=== PATIENT | male | born 1940 | race Caucasian/White ===

== ENCOUNTER → 2019-12-26 07:54 | Outpatient (CLI) | payer SELFPAY ==
--- NOTE | 2019-12-26 08:05 | CT_ITS ---
STUDY: CT ABDOMEN AND PELVIS WITH AND WITHOUT CONTRAST REASON FOR EXAM: Male, 79 years old. GROSS HEMATURIA X 3 WKS, HX-DB, SURG-PILONIDAL CYST REMOVED RADIATION DOSAGE (If Supplied By Facility): CTDIvol = ( 24.47 ) mGy, DLP = ( 3142.71 ) mGycm TECHNIQUE: Transaxial images were obtained from the dome of the diaphragm to the symphysis pubis without oral contrast. IV 100mL Isovue-300 was administered. Sagittal and coronal images were reconstructed. Individualized dose optimization techniques were used for this CT. COMPARISON: None. FINDINGS: The visualized lung bases are unremarkable. Coronary artery calcification. There is decreased attenuation of the liver consistent with steatosis. There are multiple small gallstones. Normal spleen. Normal pancreas. Normal bilateral adrenal glands. Normal right kidney. Normal left kidney. Normal visualized stomach. Normal small intestine. There are scattered colonic diverticula consistent with diverticulosis. The appendix is visualized and appears normal. There is diffuse atherosclerotic calcification of the abdominal aorta and its major visceral branches, without a demonstrated aneurysm. Normal inferior vena cava. Normal retroperitoneum. Diffuse bladder wall thickening measuring 7.6 mm although the bladder is not completely distended. There is a 1.8 cm x 1.4 cm rounded high density at the base of bladder on the right side. This may represent a calculus. A similar-appearing dense round nodule is seen at the base of the lateral on the left side measuring 1.6 cm x 1.2 cm. There is enlargement of the prostate gland. It measures 4.7 cm x 5.9 cm. Central calcifications are seen. There is a small umbilical hernia containing fat. There are mild degenerative changes of the visualized lumbar spine. CT/CT Abd/Pelvis W/WO Contrast IMPRESSION: Fatty infiltration of the liver. Multiple small gallstones. 2. Density seen at the bladder base as described. Clinical correlation is recommended. Bladder wall thickening. Electronically Signed: Rome Lobato, at 8:53 EDT , Service support ,
== END ==
PROVIDERS: PCP Family Medicine; Referring Provider Nurse Practitioner Adult Health; Visit Provider Nurse Practitioner Adult Health
DX: R31.0 Gross hematuria (principal)
CPT/HCPCS: 74178; Q9967

== ENCOUNTER 2020-01-05 06:36 | Day surgery (SDC) | payer SELFPAY ==
--- NOTE | 2020-01-04 08:40 | EKG12_ITS ---
Test Reason : PRE OP Blood Pressure : / mmHG Vent. Rate : 060 BPM Atrial Rate : 060 BPM P-R Int : 212 ms QRS Dur : 094 ms QT Int : 404 ms P-R-T Axes : 031 -16 025 degrees QTc Int : 404 ms Sinus rhythm with 1st degree A-V block with Premature atrial complexes Otherwise normal ECG Confirmed by PARISH LAGOS, HAMIDA ([id number]), editor school photograph LEYDI MULLEN ([id number]) on 01/09/2020 2:58:37 PM Referred By: Hardy Alberto Confirmed By:HAMIDA LUGO MD
[2020-01-04 09:39] LABS: Anion Gap 6 (5-15); BUN 18 mg/dL (7-18); BUN/Creat Ratio 19.8 RATIO (10-20); Calcium,Total 8.9 mg/dL (8.5-10.1); Chloride 108 mmol/L (98-107); Creatinine, Serum 0.91 mg/dL (0.70-1.30); EST Glomerular Filtration Rate 86 mL/min (>60); Est Glom Filt Rate - Afr Amer 104 mL/min (>60); Glucose 168 mg/dL (74-106); Potassium 4.2 mmol/L (3.5-5.1); Sodium Level 140 mmol/L (136-145)
[2020-01-04 10:22] LABS: Hemoglobin A1c 6.3 % (3.8-5.6)
[2020-01-05] VITALS (11 sets, daily range): BP systolic 123–189; BP diastolic 64–86; PULSE 46–73; RESP 16–18; TEMP 36.4–37.2; O2SAT 94–99; BMI 31.1
--- NOTE | 2020-01-05 | IMM_PTH ---
PATIENT: LAILA URIBE LOC: [facility] [place] U#:[id number] AGE/SX: 79/M ROOM: RE01/05/[address]: Dr. Hardy Alberto MD : 1940 BED: DIS: 01/06/2020 SPEC #: [id number] RECD: 01/09/20 12:10 STATUS: SOUJulien REQ #: [id number] YULISA: 01/05/20 00:[address]: Hardy Alberto DEPT: IMMUNOHISTOCHEMISTRY RECD BY: Mago Cassidy ENTERED: 01/09/20 12:11 SP TYPE: IMMUNO OTHR DR: Dr. Topher Diaz DO Tissues: Prostate, NOS Procedures: 34BE12 (add) P40 (add) 34BE12 (initial) PHYSICIAN & INSTITUTION [place] [id number] SPECIMEN INFORMATION: Tissue Source: Prostate tissue, TUR Clinical Info: Bladder stone and large prostate Specimen Number: [id number] #3 & 11 CPT code: 42134, 04902 x3 METHODOLOGY: Deparaffinized sections of prefer/formalin-fixed tissue or PAP/DQ stained slides are incubated with monoclonal/polyclonal antibodies/oligonucleotide probes. Localization is made via biotin free immunoperoxidase method. Appropriate controls are performed and reacted as expected. Results on target cell population are indicated in the following table: RESULTS: ANTIBODY / CLONE RESULT Block 3 P40 (BC28) negative 34BE12 (34BE12) negative Block 11 P40 (BC28) negative 34BE12 (34BE12) negative These tests were developed and their performance characteristics determined by [facility]. They may not have been cleared or approved by the U.S. Food and Drug Administration. The FDA has determined that such clearance or approval is not necessary. The above immunohistochemical/dualISH markers are ordered and reviewed by the Pathologist. INTERPRETATION: Prostate tissue, TUR: Prostatic adenocarcinoma. SJ:eric 01/10/20
[2020-01-05 07:26] LABS: Bedside Glucose 140 mg/dL (70-110)
[2020-01-05] MEDS: Lactated Ringers 1,000 ML 100 ML IV (07:34)
--- NOTE | 2020-01-05 08:07 | PCM.HP.STD ---
History of Present Illness Date of Admission: 01/05/20 Chief Complaint: Bladder stones and large prostate The patient is a 79 year old male who presented the office with gross hematuria CAT scan was done he has 2 large bladder stones and enlarged prostate with obstruction but can proceed with laser lithotripsy of the bladder stones, cystolitholapaxy and a TURP. Explained to the patient how the surgery is done with expect afterwards you have some bleeding blood in the urine healthy have to take it easy for about a week. I answered all his questions before the surgery. Past Medical History Allergies No Known Allergies Allergy (Verified 01/05/20 07:21) Home Medications: Ambulatory Orders Medication Instructions Recorded [place]-3S/Dha/Epa/Fish Oil [Fish 2 ea PO DAILY 12/29/19 Oil 1,000 mg Softgel] RX: Metformin HCl 1,000 mg PO BID 12/29/19 Warfarin Sodium [Coumadin] 6 mg PO DAILY 12/29/19 Surgical History: no surgical history Smoking Status: Former smoker Tobacco Use: Non-smoker Review of Systems Constitutional: Denies: Chills, Fever, Weight Change HEENT: Denies: Head Aches, Sinus Congestion, Sinus Drainage Cardiovascular: Denies: Chest Pain, Palpitations Respiratory: Denies: Cough, Shortness of breath at rest, Sputum production Gastrointestinal: Denies: Abdominal Pain, Nausea, Vomiting Genitourinary: Denies: Dysuria Musculoskeletal: Denies: Joint Pain, Joint Tenderness Skin: Denies: Rash, Wounds Neurological: Denies: Numbness, Tingling, Focal weakness Psychiatric: Denies: Anxiety, Depression, Homicidal Ideations, Suicidal Ideations Hematologic/ Lymphatic: Denies: Easy Bruising, Easy Bleeding VTE Information - Inpt Only VTE Present on Admission: No VTE Mechan Device Prophylaxis: SCD's - Physical Exam Vitals/I&O's: Vital Signs Temp Pulse Resp BP Pulse Ox 98.5 F 58 L 16 159/76 H 99 01/05/20 07:23 01/05/20 07:23 01/05/20 07:23 01/05/20 07:23 01/05/20 07:23 Oxygen Delivery Method Room Air Weight: 90.2 kg Body Mass Index (BMI) 31.1 General: Alert, Oriented x3, Cooperative HEENT: Atraumatic, PERRLA, EOMI, Normocephalic Neck: Supple, No JVD, Negative Carotid Bruits Lungs: Clear to auscultation, Normal air movement Cardiovascular: Regular rate, No murmurs Abdomen: Bowel Sounds Present, Soft, Non Tender Extremities: No edema, Capillary Refill Less than 3 Seconds Skin: No rashes, No breakdown Musculoskeletal: No Tenderness to Palpation of Joints or Extremities Neurological: Cranial nerves II-XII grossly intact Psych/Mental Status: Normal Affect, Appropriate Microbiology Past 72 Hours 01/04/20 09:00 Mucosa - Nasopharyngeal Coronavirus COVID-19 PCR - Final Laboratory Results 01/04/20 08:19: Sodium 140, Potassium 4.2, Chloride 108 H, Carbon Dioxide 26.0, Anion Gap 6, BUN 18, Creatinine 0.91, Est GFR (MDRD) Af Amer 104, Est GFR (MDRD) Non-Af 86, BUN/Creatinine Ratio 19.8, Glucose 168 H, Calcium 8.9 01/04/20 08:19: Hemoglobin A1c 6.3 H 01/05/20 07:19: POC Glucose 140 H Current Medications Lactated Ringer's () 1,000 mls @ 100 mls/hr IV .Q10H LEE Last Admin: 01/05/20 07:34 Dose: 100 mls/hr Documented by: Assessment/Plan 79-year-old male with BPH and obstruction 2 large bladder stones plan to laser the bladder stones and proceed with a TURP.
[2020-01-05] MEDS: Cefazolin 2 GM in 0.9% Normal Saline 100 ML IV (08:22)
--- NOTE | 2020-01-05 08:26 | PCM.DC.URO ---
Discharge Diet: No Restrictions Discharge Activity: Return to Normal Activity, May Not Drive - for 2 days. Additional Activity Instructions:: Please be aware that pain medications may cause nausea. You should typically eat light foods as you take your pain medication. Pain medication may cause constipation, if this is a problem for you, please discuss with your doctor. Instructions: Transurethral Resection of the Prostate (TURP): Home Recovery Allergies/Adverse Reactions: Allergies No Known Allergies Allergy (Verified 01/05/20 07:21) Medications to take at Discharge Metformin HCl 1,000 mg PO BID 12/29/19 [place]-3S/Dha/Epa/Fish Oil [Fish Oil 1,000 mg Softgel] 2 ea PO DAILY 12/29/19 Ciprofloxacin [Cipro] 500 mg PO BID #14 tab 01/05/20 Hydrocodone/Acetaminophen [[place] 5-325 Tablet] 1 ea PO Q4H PRN PRN 5 Days #10 tab 01/05/20 The following prescriptions were given: Ciprofloxacin [Cipro] 500 mg PO BID #14 tab Prescription Printed Hydrocodone/Acetaminophen [[place] 5-325 Tablet] 1 ea PO Q4H PRN PRN 5 Days #10 tab PRN Reason: Pain Score 1-10/10 Prescription Printed Primary Care Physician: Topher Diaz DO [Primary Care Provider] - Test Results: Test results from this visit will be discussed in further detail at your follow-up appointment, if applicable. Please Follow Up With: Hardy Alberto MD When: in 2 weeks, please call to make an appointment. Proposed Discharge Date: 01/06/20
--- NOTE | 2020-01-05 08:50 | PROS_PTH ---
PATIENT: LAILA URIBE LOC: [facility] [place] U#:[id number] AGE/SX: 79/M ROOM: RE01/05/[address]: Dr. Hardy Alberto MD : 1940 BED: DIS: 01/06/2020 SPEC #: [id number] RECD: 01/05/20 11:08 STATUS: JIM SMITH #: [id number] YULISA: 01/05/20 08:[address]: Hardy Alberto DEPT: SURGICAL PATHOLOGY RECD BY: Blair Hernandez ENTERED: 01/05/20 11:37 SP TYPE: TURP OTHR DR: Dr. Topher Diaz, DO Tissues: Prostate, NOS Procedures: Surgery Specimen Level IV HEADER OPERATION: Cystoscopy, TUR of prostate PRE-OP DIAGNOSIS: Bladder stones and large prostate TISSUE SUBMITTED: Prostate tissue MICROSCOPIC DIAGNOSIS Prostate tissue, TUR: Prostatic adenocarcinoma. Fragments of stone, gross only. Please see cancer summary in the comment. SJ:rg 01/09/20 COMMENT PROSTATE CANCER (TUR) SUMMARY: Procedure - transurethral resection of prostate (TURP) Histologic type - acinar adenocarcinoma Histologic grade (Mychal Pattern) - group 1 ([place] score 3+3=6) Tumor Quantitation (TUR specimens): Estimated percentage of prostatic tissue involved by tumor - ~20% Number of positive chips - 21 Total number of chips - ~120 Periprostatic fat invasion - not applicable Seminal vesicle invasion - not applicable Lymphvascular invasion - not identified Perineural invasion - not identified Additional pathologic findings - benign prostatic hyperplasia, glandular and stromal type. - Chronic inflammation. - Fragments of stones. Treatment effect - no known presurgical therapy. The above summary is in compliance with [employer] [place] [employer] (CAP) Cancer Protocols Checklist and [place] Joint Committee on Cancer (AJCC), Staging Manual, 8th Ed. Immunohistochemistry ([id number]) supports the above diagnosis. Case has been reviewed in consultation with Dr. Fagan who concurs with the above diagnosis. IDC:AM MICROSCOPIC DESCRIPTION Slides are reviewed. GROSS DESCRIPTION Received is one container labeled with the patient's name and designated prostate tissue. The specimen consists of multiple irregular fragments of pink-jolly, rubbery, soft tissue that in aggregate weigh 11.9 gm and measure in aggregate 8 x 8 x 0.7 cm. Also present in the specimen contains are multiple irregular chalky, yellow calculi aggregating to 5 x 3 x 0.9 cm. Almost entire soft tissue is submitted in 12 cassettes. Stones are for gross identification only / AM:eric 01/05/20 TC:0 CPT: 63169
--- NOTE | 2020-01-05 09:48 | PCM.OPRPT ---
Report of Operation Date of Procedure: 01/05/20 Pre-Operative Diagnosis: Bladder stones and BPH with obstruction Post-Operative Diagnosis: Same Surgery/Procedure Performed:: Cystoscopy and laser bladder stones, transurethral section of the prostate Description of Surgical Findings:: 79-year-old male was found to have a very large bladder stones and also obstructive prostate on CAT scan recommended we proceed with a cystolitholapaxy and laser of the bladder stones and also transurethral resection of the prostate to resect the obstructive prostate. Risk of the procedure were discussed with the patient including bleeding, infection, bladder control problems. 79-year-old male taken back to the operating room at the smooth induction of general anesthesia is placed upon the table penis and testicles are prepped and draped in usual sterile fashion went into the bladder with a 26 [place] continuous flow resectoscope once inside the bladder I put in the laser bridge and then I used the thousand micron laser fiber to laser to very large bladder stones both stones were about greater than 3 to 5 cm in size. Took a while to laser the stones with the stones were lasered out completely then I flushed all the pieces out of the bladder and I switched over to the Olympus resectoscope he had really no median lobe it is significant bilateral hydro-per trophy and I resected the left lobe of the prostate and then I resected the right lobe of the prostate very carefully resected by the verumontanum making sure not to resect past the sphincter. I pulled behind the sphincter received the sphincter coapted together and the verumontanum was in view and no resection past the verumontanum. Obtained hemostasis. I attempted a flow test but had a count of a weak flow but could not get a really strong flow but looked inside and really no more tissue to resect and I did not identify any flapping tissue. I then placed a catheter in the bladder on continuous bladder irrigation we will keep him overnight with a catheter I think for his case send him home with a catheter let things heal up and then will get the catheter out next week in the office. Type of Anesthesia:: General Drains: 3 way thomason - Admit VTE Documentation VTE Present on Admission: No
[2020-01-05 10:11] LABS: Bedside Glucose 138 mg/dL (70-110)
[2020-01-05] MEDS: 0.9% Normal Saline 1,000 ML 75 ML IV (13:11)
[2020-01-05] MEDS: Cefazolin 1 GM/50 ML BAG IV ×2 (16:09→23:44)
[2020-01-05 16:48] LABS: Prothrombin Time Fingerstick 11.9 SEC (11.9-14.4)
[2020-01-05] MEDS: metFORMIN HCl 1,000 MG Tablet 1000 MG PO (16:58)
[2020-01-05 17:05] LABS: Bedside Glucose 174 mg/dL (70-110)
[2020-01-05] MEDS: Docusate Sodium 100 MG Capsule 200 MG PO (21:43)
[2020-01-05] MEDS: Ibuprofen 600 MG Tablet PO (21:43)
[2020-01-06] MEDS: Acetaminophen 325 MG Tablet PO (01:59)
[2020-01-06 03:00] VITALS: BP 135/62; PULSE 53; RESP 16; TEMP 36.9; O2SAT 96
--- NOTE | 2020-01-06 06:42 | NURSING ---
CBI stopped 0600. Urine clear in tubing. No clots or issues overnight.
[2020-01-06 07:59] VITALS: O2SAT 94
[2020-01-06] MEDS: Docusate Sodium 100 MG Capsule 200 MG PO (08:44)
[2020-01-06] MEDS: Pantoprazole Sodium 40 MG Tablet PO (08:44)
[2020-01-06] MEDS: metFORMIN HCl 1,000 MG Tablet 1000 MG PO (08:44)
[2020-01-06 08:47] VITALS: BP 149/69; PULSE 52; RESP 18; TEMP 36.6; O2SAT 97
--- NOTE | 2020-01-06 10:01 | DS.PCM_ITS ---
Discharge Date and Diagnosis Date of Admission: 01/05/20 Date of Discharge: 01/06/20 Hospital Course and Treatment Operations: TURP Procedures: None Summary of Care Provided: The patient is a 79 year old status post TURP urine is nice and clear he will go home today after he is able to urinate. There is no blood in the urine irrigation is off. - Physical Exam Vitals/I&O's: Vital Signs Temp Pulse Resp BP Pulse Ox 97.9 F 52 L 18 149/69 H 97 01/06/20 08:47 01/06/20 08:47 01/06/20 08:47 01/06/20 08:47 01/06/20 08:47 Oxygen Delivery Method Room Air Weight: 90.2 kg Body Mass Index (BMI) 31.1 Finger Stick Blood Glucose 138 Intake and Output for Last 24 Hours 01/04/20 01/05/20 01/06/20 23:59 23:59 23:59 Intake Total 1589.58 / 1889.58 783.75 / 783.75 Output Total 2350 / 2850 700 / 700 Balance -760.42 / -960.42 83.75 / 83.75 General: Alert, Oriented x3, Cooperative HEENT: Atraumatic, PERRLA, EOMI, Normocephalic Neck: Supple, No JVD, Negative Carotid Bruits Lungs: Clear to auscultation, Normal air movement Cardiovascular: Regular rate, No murmurs Abdomen: Bowel Sounds Present, Soft, Non Tender Extremities: No edema, Capillary Refill Less than 3 Seconds Skin: No rashes, No breakdown Musculoskeletal: No Tenderness to Palpation of Joints or Extremities Neurological: Cranial nerves II-XII grossly intact Psych/Mental Status: Normal Affect, Appropriate Microbiology Past 72 Hours 01/04/20 09:00 Mucosa - Nasopharyngeal Coronavirus COVID-19 PCR - Final Laboratory Results 01/05/20 07:23: POC PT 11.9, INR 0.90 01/05/20 10:07: POC Glucose 138 H 01/05/20 16:56: POC Glucose 174 H Current Medications Acetaminophen (Tylenol) 325 mg PO Q4H PRN PRN PRN Reason: Pain Score 1-10/10 Last Admin: 01/06/20 01:59 Dose: 325 mg Documented by: Al Hydroxide/Mg Hydroxide (Mylanta Ii) 30 ml PO Q4H PRN PRN PRN Reason: Heartburn Belladonna Alkaloids/Opium (B & O) 60 mg RECTAL Q6H PRN PRN PRN Reason: Spasm Docusate Sodium (Colace) 200 mg PO BID ON LICENSE OF [facility] Last Admin: 01/06/20 08:44 Dose: 200 mg Documented by: Sodium Chloride () 1,000 mls @ 75 mls/hr IV .[id number] ON LICENSE OF [facility] Last Infusion: 01/06/20 07:42 Dose: Infused Documented by: Sodium Chloride () 250 mls @ 15 mls/hr IV .[id number] PRN PRN Reason: Saline Flush Sodium Chloride () 250 mls @ 15 mls/hr IV .[id number] PRN PRN Reason: Additional IVPB Infusion Ibuprofen (Motrin) 600 mg PO Q6H PRN PRN PRN Reason: Pain Score 1-10/10 Last Admin: 01/05/20 21:43 Dose: 600 mg Documented by: Met[facility]) [facility] Last Admin: 01/06/20 08:44 Dose: 1,000 mg Documented by: Ondansetron HCl (Zofran) 4 mg IV Q6H PRN PRN PRN Reason: Nausea Oxycodone HCl (Oxyir) 5 mg PO Q4H PRN PRN PRN Reason: Pain Score 1-10/10 Pantoprazole Sodium (Protonix) 40 mg PO DAILY ON LICENSE OF [facility] Last Admin: 01/06/20 08:44 Dose: 40 mg Documented by: Sodium Chloride () 10 - 40 ml IV UD PRN PRN Reason: SALINE FLUSH Discharge Diet: No Restrictions Discharge Activity: Return to Normal Activity, May Not Drive - for 2 days. Additional Activity Instructions:: Please be aware that pain medications may cause nausea. You should typically eat light foods as you take your pain medication. Pain medication may cause constipation, if this is a problem for you, please discuss with your doctor. Home Medications: Medications to take at Discharge Metformin HCl 1,000 mg PO BID 12/29/19 [place]-3S/Dha/Epa/Fish Oil [Fish Oil 1,000 mg Softgel] 2 ea PO DAILY 12/29/19 Ciprofloxacin [Cipro] 500 mg PO BID #14 tab 01/05/20 Hydrocodone/Acetaminophen [[place] 5-325 Tablet] 1 ea PO Q4H PRN PRN 5 Days #10 tab 01/05/20 Following Prescrptions Were Given to Patient: Ciprofloxacin [Cipro] 500 mg PO BID #14 tab Prescription Printed Hydrocodone/Acetaminophen [[place] 5-325 Tablet] 1 ea PO Q4H PRN PRN 5 Days #10 tab PRN Reason: Pain Score 1-05/25 Prescription Printed Primary Care Physician: Topher Diaz DO [Primary Care Provider] - Please Follow Up With: Hardy Alberto MD When: in 2 weeks, please call to make an appointment. Patient Instructions: Transurethral Resection of the Prostate (TURP): Home Recovery Medical Necessity - Tobacco Use Smoking Status: Former smoker Tobacco Use: Non-smoker Meaningful Use Info Meaningful Use Diagnoses (Choose all that apply): None applicable
[2020-01-06 13:11] VITALS: BP 135/63; PULSE 53; RESP 18; TEMP 36.9; O2SAT 100
== END 2020-01-06 13:53 | disposition home or self-care (01) ==
LOC: SDC 06:37 → AC 06:44 → MS3 08:41
PROVIDERS: Anesthesiology; PCP Family Medicine; Referring Provider Urology; Visit Provider Urology
PROC: (CPT 52317; principal; 2020-01-05 08:40)
DX: C61 Malignant neoplasm of prostate (principal); N40.1 Benign prostatic hyperplasia with lower urinary tract symptoms; N13.8 Other obstructive and reflux uropathy; R31.0 Gross hematuria; R35.0 Frequency of micturition; R39.15 Urgency of urination; N21.0 Calculus in bladder; E11.9 Type 2 diabetes mellitus without complications; H91.90 Unspecified hearing loss, unspecified ear; G25.81 Restless legs syndrome; Z86.711 Personal history of pulmonary embolism; Z79.01 Long term (current) use of anticoagulants; Z86.718 Personal history of other venous thrombosis and embolism; Z79.899 Other long term (current) drug therapy; Z79.84 Long term (current) use of oral hypoglycemic drugs; Z11.59 Encounter for screening for other viral diseases
CPT/HCPCS: 52317; 52601; 36415; 36416; 80048; 82962; 83036; 85610; 87635; 88305; 88341; 88342; 93005; G2023; J7030; J7120; J2405; U0004

== ENCOUNTER → 2020-01-11 11:20 | Outpatient (CLI) | payer SELFPAY ==
[2020-01-05 11:26] VITALS: BMI 31.1
--- NOTE | 2020-01-11 11:32 | VDLE_ITS ---
Reason For Study: Post op RIGHT LEFT GSV is normal. GSV is normal. CFV is compressible, spontaneous, phasic, CFV is compressible, spontaneous, phasic, competent and demonstrates normal competent, and demonstrates normal augmentation. augmentation. FV is compressible, spontaneous, phasic, FV is compressible, spontaneous, phasic, competent and demonstrates normal competent and demonstrates normal augmentation. augmentation. POP V is compressible, spontaneous, phasic, POP V is compressible, spontaneous, phasic, competent and demonstrates normal competent and demonstrates normal augmentation. augmentation. T/P Trunk is compressible. T/P Trunk is compressible. PTV is compressible. PTV is compressible. RT PerV is compressible. LT PerV is compressible. Right FV, PopV and T/P Trunk are partially Left FV, PopV and T/P Trunk are partially compressible with briht intraluminal echoes compressible with briht intraluminal echoes consistent with chronic DVT. consistent with chronic DVT. Procedure Exam performed in department. A preliminary report was called and/or faxed to [facility]. Interpretation Summary Chronic venous changes are noted in the femoral vein, popliteal vein, and tibio-peroneal trunk bilaterally, which are partially compressible and demonstrate bright intraluminal echogenicity. The deep venous system is otherwise patent and compressible bilaterally. The great saphenous veins appear bilaterally patent and compressible segmentally. Ordering Physician: Hardy Alberto Referring Physician: Topher Diaz Performed By: Renée Ring RVT
== END ==
PROVIDERS: PCP Family Medicine; Referring Provider Urology; Visit Provider Urology
DX: Z48.816 Encounter for surgical aftercare following surgery on the genitourinary system (principal)
CPT/HCPCS: 93970

== ENCOUNTER → 2020-01-16 13:34 | Outpatient (CLI) | payer OTHER, SELFPAY ==
[2020-01-05 11:26] VITALS: BMI 31.1
[2020-01-16 14:14] LABS: PSA,Total - Annual Screen 3.25 ng/mL (0.00-4.00)
== END ==
PROVIDERS: PCP Family Medicine; Referring Provider Urology; Visit Provider Urology
DX: N40.1 Benign prostatic hyperplasia with lower urinary tract symptoms (principal); Z12.5 Encounter for screening for malignant neoplasm of prostate
CPT/HCPCS: 36415; 84153; G0103